=== PATIENT | female | born 1935 | race Two or more races ===

== ENCOUNTER → 2018-11-23 | Outpatient (CLI) | payer OTHER | END | disposition home or self-care (01) | LOC: NUCLEAR 07:00 | DX: I11.0 Hypertensive heart disease with heart failure (principal); I25.10 Atherosclerotic heart disease of native coronary artery without angina pectoris | CPT/HCPCS: 78452; 93017; A9500; J0153 ==

== ENCOUNTER 2019-03-29 15:42 | Emergency (ER) | payer OTHER ==
[~2019-03-29] VITALS: Ht 152.4 cm; Wt 60.8 kg
[2019-03-29] MEDS ORDERED: ASPIR 8181 MG (16:06)
[2019-03-29] MEDS ORDERED: COREG CR10 MG (16:06)
[2019-03-29] MEDS ORDERED: COZAAR50 MG (16:06)
[2019-03-29] MEDS ORDERED: SYNTHROID75 MCG (16:11)
== END 2019-03-29 19:54 | disposition home or self-care (01) ==
LOC: ER 15:42
DX: M54.2 Cervicalgia (principal); R51 Headache

== ENCOUNTER → 2019-07-08 | Emergency (ER) | payer OTHER ==
[~2019-07-08] VITALS: Ht 157.5 cm; Wt 64.0 kg
[~2019-07-08] MED LIST: ASPIR 8181 MG; COREG CR10 MG; COZAAR50 MG; PLAVIX75 MG; SYNTHROID75 MCG
== END | disposition home or self-care (01) ==
LOC: ER 18:16
DX: S70.01XA Contusion of right hip, initial encounter (principal); S80.01XA Contusion of right knee, initial encounter; W18.09XA Striking against other object with subsequent fall, initial encounter; Y93.89 Activity, other specified; Y92.481 Parking lot as the place of occurrence of the external cause; Y99.8 Other external cause status

== ENCOUNTER → 2019-08-25 | Outpatient (CLI) | payer OTHER | END | disposition home or self-care (01) | LOC: RAD 14:09 | DX: M25.561 Pain in right knee (principal); M25.551 Pain in right hip; M25.552 Pain in left hip ==

== ENCOUNTER 2019-09-21 14:09 | Outpatient (CLI) | payer OTHER | END 2019-09-21 15:03 | disposition home or self-care (01) | LOC: NUCLEAR 14:09 | DX: M81.0 Age-related osteoporosis without current pathological fracture (principal) ==